=== PATIENT | female | born 1995 | race Caucasian/White ===

== ENCOUNTER → 2017-08-12 | Outpatient (CLI) | payer OTHER ==
[2017-08-12 20:51] LABS: BASO % 0.3 % (0.0-1.0); EOS # 0.1 10^3/uL (0.0-0.50); EOS % 1.5 % (0.0-3.0); IMMATURE GRANULOCYTE % 0.1 % (0-0); LYMPH # 2.6 10^3/uL (1.5-6.5); MEAN CORPUSCULAR HEMOGLOBIN 28.6 pg (27.0-33.0); MEAN CORPUSCULAR VOLUME 86.8 fl (80.0-96.0); MONO # 0.6 10^3/uL (0.0-0.8); MONO % 8.6 % (0.0-5.0); NEUTROPHILS # 3.5 10^3/uL (1.8-7.7); NEUTROPHILS % 51.5 % (36.0-66.0); PLATELET COUNT, AUTOMATED 312 10^3/uL (150-450); RED CELL DISTRIBUTION WIDTH 11.9 % (11.5-14.5)
[2017-08-12 21:02] LABS: ADD MORPHOLOGY? NO
[2017-08-16 10:22] LABS: HBsAg Prenatal NEGATIVE (NEGATIVE); WHITE BLOOD COUNT 6.7 10^3/uL (4.0-10.0)
== END ==
LOC: M WUC 17:57
PROVIDERS: ATTEND Obstetrics & Gynecology
DX: Z36 Encounter for antenatal screening of mother (principal)

== ENCOUNTER → 2017-09-28 | Outpatient (CLI) | payer BC, OTHER | LOC: M SMT 11:41 | PROVIDERS: ATTEND Specialist | DX: Z13.79 Encounter for other screening for genetic and chromosomal anomalies (principal) ==

== ENCOUNTER → 2017-11-29 | Outpatient (CLI) | payer OTHER | LOC: M SMT 12:59 | DX: Z34.82 Encounter for supervision of other normal pregnancy, second trimester (principal); Z3A.19 19 weeks gestation of pregnancy | CPT/HCPCS: 76811 ==

== ENCOUNTER → 2018-01-03 | Outpatient (REF) | payer OTHER, BC | LOC: M LAB REF 12:55 | DX: Z36.89 Encounter for other specified antenatal screening (principal); Z3A.00 Weeks of gestation of pregnancy not specified | CPT/HCPCS: 87186 ==

== ENCOUNTER → 2018-01-03 | Outpatient (CLI) | payer OTHER | LOC: M SMT 08:51 | DX: Z34.82 Encounter for supervision of other normal pregnancy, second trimester (principal); Z3A.24 24 weeks gestation of pregnancy ==

== ENCOUNTER → 2018-01-19 | Outpatient (CLI) | payer OTHER ==
[2018-01-19 13:34] LABS: HEMATOCRIT 36.9 % (36.0-47.0); HEMOGLOBIN 11.9 g/dl (12.0-16.0); MEAN CORPUSCULAR HEMOGLOBIN 27.4 pg (27.0-33.0); MEAN CORPUSCULAR HGB CONC 32.2 g/dl (32.0-36.5); MEAN CORPUSCULAR VOLUME 84.8 fl (80.0-96.0); PLATELET COUNT, AUTOMATED 288 10^3/uL (150-450); RED BLOOD COUNT 4.35 10^6/uL (4.00-5.40); RED CELL DISTRIBUTION WIDTH 12.8 % (11.5-14.5); WHITE BLOOD COUNT 12.9 10^3/uL (4.0-10.0)
[2018-01-19 14:29] LABS: GLUCOSE CHALLENGE TEST 1 HOUR 114 MG/DL (LESS THAN 140)
== END ==
LOC: M SMT 08:57
DX: Z36.89 Encounter for other specified antenatal screening (principal); Z3A.00 Weeks of gestation of pregnancy not specified
CPT/HCPCS: 82950

== ENCOUNTER → 2018-03-30 | Outpatient (REF) | payer OTHER, BC | LOC: M LAB REF 13:03 | DX: Z34.83 Encounter for supervision of other normal pregnancy, third trimester (principal) | CPT/HCPCS: 87081 ==

== ENCOUNTER 2018-04-06 16:16 | Outpatient (CLI) | payer OTHER, BC | END 2018-04-06 17:40 | disposition home or self-care (01) | LOC: M LDO 16:16 | DX: O26.893 Other specified pregnancy related conditions, third trimester (principal); R42 Dizziness and giddiness; R06.02 Shortness of breath; O47.1 False labor at or after 37 completed weeks of gestation; Z3A.37 37 weeks gestation of pregnancy | CPT/HCPCS: 59025 ==

== ENCOUNTER 2018-04-18 06:08 | Inpatient (IN) | payer OTHER, BC ==
[2018-04-18] MEDS ORDERED: miSOPROStol 50 MCG 1/2 TAB (S0191) PO (07:00)
[2018-04-18] MEDS: LACTATED RINGER'S 1000 ML IV (07:56)
[2018-04-18 08:10] LABS: HEMATOCRIT 33.5 % (36.0-47.0); HEMOGLOBIN 10.5 g/dl (12.0-15.5); MEAN CORPUSCULAR HEMOGLOBIN 24.6 pg (27.0-33.0); MEAN CORPUSCULAR HGB CONC 31.3 g/dl (32.0-36.5); MEAN CORPUSCULAR VOLUME 78.6 fl (80.0-96.0); PLATELET COUNT, AUTOMATED 250 10^3/uL (150-450); RED BLOOD COUNT 4.26 10^6/uL (4.00-5.40); RED CELL DISTRIBUTION WIDTH 15.7 % (11.5-14.5); WHITE BLOOD COUNT 13.5 10^3/uL (4.0-10.0)
[2018-04-18] MEDS ORDERED: OXYTOCIN 30 UNITS IN 0.9% NaCl 500ML IV BAG (J2590) As Ordered (08:34)
[2018-04-18] MEDS: LR 1,000 ML IV ×2 (08:46→11:58)
[2018-04-18] MEDS: OXYTOCIN DRIP 30 UNITS in APPROPRIATE DILUENT 1 EA IV (08:46)
[2018-04-18] MEDS ORDERED: miSOPROStol 50 MCG 1/2 TAB (S0191) SL (11:00)
[2018-04-18] MEDS ORDERED: PROMETHAZINE INJ 25 MG/ML VIAL (J2550) IV (15:45)
[2018-04-18] MEDS ORDERED: FENTANYL 2MCG/ML ROPIVACAINE 0.2% IN 0.9% NACL 200ML IVBAG As Ordered (15:51)
[2018-04-18] MEDS ORDERED: ONDANSETRON 4MG/2ML VIAL (J2405) IV (16:30)
[2018-04-18] MEDS ORDERED: LACTATED RINGER'S 1000 ML IV (16:30)
[2018-04-18] MEDS ORDERED: diphenhydrAMINE INJ 50MG/ML VIAL (J1200) IV (16:30)
[2018-04-18] MEDS ORDERED: EPIDURAL/PCA KEYS XX (16:30)
[2018-04-18] MEDS ORDERED: FENTANYL/ROPIVACAINE/NACL BAG 200 ML EPIDURAL (16:30)
[2018-04-18] MEDS ORDERED: EPIDURAL COMMENT XX (16:30)
[2018-04-18] MEDS ORDERED: NALOXONE INJ 0.4 MG/1 ML VIAL (J2310) IV (16:30)
[2018-04-18] MEDS ORDERED: REFRIGERATOR IV KEYS XX (16:30)
[2018-04-18] MEDS: ePHEDrine SULFATE 25 MG/5 ML(5MG/ML) SYRINGE IV ×3 (17:20→17:45)
[2018-04-18 22:18] LABS: CORD GAS ABE V -10.1; CORD GAS HCO3 V 16.2 MEQ/L; CORD GAS O2 SAT V 53.3 %; CORD GAS PCO2 V 37.6 mmHg; CORD GAS PH V 7.253 UNITS; CORD GAS PO2 V 26.3 mmHg; CORD GAS SBC V 15.7 MEQ/L; CORD GAS TCO2 V 17.4 MEQ/L
[2018-04-18 22:20] LABS: CORD GAS ABE A -9.1; CORD GAS HCO3 A 17.5 MEQ/L; CORD GAS O2 SAT A 57.7 %; CORD GAS PCO2 A 40.5 mmHg; CORD GAS PH A 7.254 UNITS; CORD GAS PO2 A 27.3 mmHg; CORD GAS SBC A 16.4 MEQ/L; CORD GAS TCO2 A 18.8 MEQ/L
[2018-04-19] MEDS ORDERED: IBUPROFEN 800 MG TAB PO
[2018-04-19] MEDS ORDERED: MEASLES,MUMPS,RUBELLA VACCINE INJ (MMR-II) (90707) SC
[2018-04-19] MEDS ORDERED: MOM 30ML SUSPENSION UDC PO
[2018-04-19] MEDS ORDERED: ANUSOL HC CREAM 30GM TOP
[2018-04-19] MEDS ORDERED: DOCUSATE SODIUM 100 MG CAP PO
[2018-04-19] MEDS ORDERED: METHYLERGONOVINE MALEATE 0.2 MG/ML VIAL (J2210) IM
[2018-04-19] MEDS ORDERED: ACETAMINOPHEN 500 MG TAB PO
[2018-04-19] MEDS: METHYLERGONOVINE MALEATE 0.2 MG/ML VIAL (J2210) IM (00:33)
[2018-04-19] MEDS: miSOPROStol 200 MCG TAB (S0191) PR (00:33)
[2018-04-19] MEDS: CARBOPROST TROMETHAMINE 250 MCG/ML AMP IM (00:34)
[2018-04-19] MEDS: BUTORPHANOL 2 MG/ML INJ (J0595) IV (00:34)
[2018-04-19] MEDS: OXYTOCIN DRIP 30 UNITS in APPROPRIATE DILUENT 1 EA IV (00:34)
[2018-04-19] MEDS: RHOGAM 300 MCG (1500 IU) INJ (J2790) IM (07:00)
[2018-04-19] MEDS: PRENATAL VITAMINS CHEWABLE TABLET PO (08:16)
[2018-04-19] MEDS: DIBUCAINE 1% OINTMENT 30GM TOP (20:50)
[2018-04-20] MEDS: PRENATAL VITAMINS CHEWABLE TABLET PO (09:21)
== END 2018-04-20 11:35 | disposition home or self-care (01) | DRG 775 ==
LOC: M LDO 06:08 → M OBS 04-19 00:32 → M LDI 06:41
PROVIDERS: Advanced Practice Midwife
PROC: 10E0XZZ Delivery of Products of Conception, External Approach (ICD-10-PCS; principal; 2018-04-18)
DX: O80 Encounter for full-term uncomplicated delivery (principal); Z88.1 Allergy status to other antibiotic agents; Z88.8 Allergy status to other drugs, medicaments and biological substances; Z37.0 Single live birth; Z3A.39 39 weeks gestation of pregnancy